=== PATIENT | female | born 1940 | race Caucasian/White ===

== ENCOUNTER 2017-02-25 12:04 | Emergency (ER) | payer OTHER ==
--- NOTE | 2017-02-25 12:55 | CPEKG ---
Heart Rate: 61 RR Interval: 984 P-R Interval: 148 QRSD Interval: 78 QT Interval: 408 QTC Interval: 411 P [place]: 66 QRS [place]: 26 T Wave [place]: 27 EKG Severity - NORMAL ECG - EKG Impression: SINUS RHYTHM Electronically Signed By: Kianna Buenrostro 25-Feb-2017 15:42:25
[2017-02-25 13:22] LABS: % IMMATURE GRANULYOCYTES 0.3 % (0.0-1.1); ABSOLUTE IMMATURE GRANULOCYTES 0.02 10^3/uL (0.00-0.10); ADD DIFF? NO; ADD MORPH? NO; ADD SCAN? NO; ATYPICAL LYMPHOCYTE FLAG 0 (0-99); FRAGMENT RBC FLAG 0 (0-99); HEMATOCRIT 45.5 % (38.0-47.0); HEMOGLOBIN 15.6 g/dL (12.6-16.3); LEFT SHIFT FLG 0 (0-99); LIPEMIA HEMOLYSIS FLAG 90 (0-99); MEAN CELL HEMOGLOBIN 32.4 pg (27.9-34.1); MEAN CELL HEMOGLOBIN CONCENTR. 34.3 g/dL (32.4-36.7); MEAN CELL VOLUME 94.6 fL (81.5-99.8); MEAN PLATELET VOLUME 11.1 fL (8.7-11.7); PLATELET CLUMPS FLAG 0 (0-99); PLATELET COUNT 174 10^3/uL (150-400); RED BLOOD CELL COUNT 4.81 10^6/uL (4.18-5.33); RED CELL DISTRIBUTION WIDTH 12.3 % (11.5-15.2)
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
[2017-02-25 13:45] LABS: ANION GAP 9 mEq/L (8-16); CALCIUM 10.4 mg/dL (8.5-10.4); CARBON DIOXIDE 26 mEq/l (22-31); CHLORIDE 107 mEq/L (97-110); CREATININE 0.6 mg/dL (0.6-1.0); GLOMERULAR FILTRATION RATE > 60; GLUCOSE 89 mg/dL (70-100); POTASSIUM 4.6 mEq/L (3.5-5.2); SODIUM 142 mEq/L (134-144)
[2017-02-25 13:53] LABS: TROPONIN I < 0.012 ng/mL (0-0.034)
[2017-02-25 14:29] VITALS: RESP 16
[2017-02-25 15:44] VITALS: BP 109/73; PULSE 63; TEMP 98.1; O2SAT 90
== END 2017-02-25 15:49 | disposition home or self-care (01) ==
DX: R07.9 Chest pain, unspecified (principal); I10 Essential (primary) hypertension; E11.9 Type 2 diabetes mellitus without complications

== ENCOUNTER 2018-02-03 13:51 | Emergency (ER) | payer OTHER ==
[2018-02-03] MEDS ORDERED: IBUPROFEN 600 MG TAB PO ONE (14:32)
[2018-02-03] MEDS ORDERED: IBUPROFEN 200 MG TAB PO ONE (14:43)
--- NOTE | 2018-02-03 15:00 | EDPHY ---
HPI/HX/ROS/PE/MDM Narrative: CHIEF COMPLAINT: Right hip and back pain HPI: The patient is a 77 y/o with a history of a C4-7 fusion, lumbar spine degenerative discs, osteoarthritis, and hypertension complaining of right back and hip pain onset 2 weeks ago. She believes the pain started after picking up her sewing machine. Denies any fall or injury. She saw Dr. Goff, orthopedic surgeon, (01/26/18 and 02/03/18) and a physical therapist without relief of her symptoms. Dr. Goff preformed 5 x-rays and diagnosed her with right-sided sciatica. Last night she had 3 episodes of urinary incontinence. Denies pain while urinating. Today she saw Dr. Goff's PA today who was concerned about the incontinence and advised the patient to go to the ER. Standing up exacerbates her symptoms. Also, when she stands for an extended period of time she has numbness radiating down her right leg. She has been using Percocet and Flexeril for the pain at night, which mildly relives her pain. No chest pain, shortness of breath, abdominal pain, headache, fever. REVIEW OF SYSTEMS: Aside from elements discussed in the HPI, a comprehensive 10-point review of systems was reviewed and is negative. PMH: Hypertension, cholecystectomy, GERD, C4-7 fusion, lumbar spine disc degeneration, arthritis, anxiety, fibromyalgia SOCIAL HISTORY: Lives in [place], family at bedside, retired PHYSICAL EXAM: General: Patient is alert, in no acute distress. ENT: Eyes are normal to inspection. ENT inspection normal. Neck: Normal inspection. Full range of motion. Respiratory: No respiratory distress. Breath sounds normal bilaterally. Cardiovascular: Regular rate and rhythm. Strong peripheral pulses. Normal cap refill. Abdomen: The abdomen is nontender to palpation. There are no peritoneal signs. There are normal bowel sounds. Back: Tenderness in the right sciatic notch. Normal to inspection. Skin: Normal color. No rash. Warm and dry. Extremities: Normal appearance. Full range of motion. Neuro: Oriented x3. Normal motor function. Normal sensory function. ED Course: 1612: I spoke with Dr. Kennedy, radiologist, regarding the patient's lumbar spine MRI. There is moderate canal stenosis of L1-5. UA still pending. 0: Patient's UA is negative for a UTI. Her symptoms are consistent with right -sided sciatica. 1732: Reassessed patient and discussed laboratory and imaging findings. She is feeling better after Dilaudid, Ativan, and Ibuprofen. I have referred her to Dr. Feldman, neurosurgeon, for an outpatient follow up visit. Return precautions provided; patient is comfortable with this plan. MDM: This patient presents with signs and symptoms of sciatica, with concerning symptom of urinary incontinence. Fortunately, MRI does not demonstrate spinal disease severe enough to be cause of incontinence, and patient feels much better after routine pain medication. I see no sign of UTI or other abdominal process. She is comfortable with the plan to be discharged home and follow-up with a neurosurgeon we have referred her to. I see no signs of AAA, kidney stone, pyelonephritis, sepsis, cauda equina syndrome. - Data Points Imaging Results: Imaging Impressions Lumbar Spine MRI 02/03/18 15:19 Impression: 1. Moderate levoscoliosis, with multilevel moderate degenerative disk disease from L1-L2 through L4-L5 and multilevel moderate bilateral facet arthropathy, resulting in multilevel mild to moderate central canal stenosis, worse at L3-L4 and L4-L5, and variable bilateral neural foraminal stenosis, worse on the left at L4-L5 and on the right at the L2-L3 level. 2. Please see above findings at specific disk levels. Findings and recommendations discussed with Emergency Department physician, Ej Crump M.D., at 1612 hours, on February 03, 2018. Final report concurs with initial preliminary interpretation. Imaging: Discussed imaging studies w/ property adjuster Radiologist, I viewed and interpreted images myself Laboratory Results: Laboratory Results 02/03/18 15:40 02/03/18 15:40 02/03/18 02/03/18 02/03/18 16:35 15:40 15:40 WBC 7.83 10^3/uL 10^3/uL (3.80-9.50) RBC 4.81 10^6/uL 10^6/uL (4.18-5.33) Hgb 15.6 g/dL g/dL (12.6-16.3) Hct 45.3 % % (38.0-47.0) MCV 94.2 fL fL (81.5-99.8) MCH 32.4 pg pg (27.9-34.1) MCHC 34.4 g/dL g/dL (32.4-36.7) RDW 12.9 % % (11.5-15.2) Plt Count 188 10^3/uL 10^3/uL (150-400) MPV 11.1 fL fL (8.7-11.7) Neut % (Auto) 57.7 % % (39.3-74.2) Lymph % (Auto) 34.5 % % (15.0-45.0) [place] % (Auto) 6.5 % % (4.5-13.0) Eos % (Auto) 0.5 % L % (0.6-7.6) Baso % (Auto) 0.4 % % (0.3-1.7) Nucleat RBC Rel Count 0.0 % % (0.0-0.2) Absolute Neuts (auto) 4.52 10^3/uL 10^3/uL (1.70-6.50) Absolute Lymphs (auto) 2.70 10^3/uL 10^3/uL (1.00-3.00) Absolute Monos (auto) 0.51 10^3/uL 10^3/uL (0.30-0.80) Absolute Eos (auto) 0.04 10^3/uL 10^3/uL (0.03-0.40) Absolute Basos (auto) 0.03 10^3/uL 10^3/uL (0.02-0.10) Absolute Nucleated RBC 0.00 10^3/uL 10^3/uL (0-0.01) Immature Gran % 0.4 % % (0.0-1.1) Immature Gran # 0.03 10^3/uL 10^3/uL (0.00-0.10) Sodium 142 mEq/L mEq/L (135-145) Potassium 4.4 mEq/L mEq/L (3.5-5.2) Chloride 103 mEq/L mEq/L (97-110) Carbon Dioxide 28 mEq/l mEq/l (22-31) Anion Gap 11 mEq/L mEq/L (8-16) BUN 18 mg/dL mg/dL (7-23) Creatinine 0.7 mg/dL mg/dL (0.6-1.0) Estimated GFR > 60 Glucose 83 mg/dL mg/dL (70-100) Calcium 10.4 mg/dL mg/dL (8.5-10.4) Urine Color YELLOW Urine Appearance CLEAR Urine pH 7.0 (5.0-7.5) Ur Specific [place] 1.006 (1.002-1.030) Urine Protein NEGATIVE (NEGATIVE) Urine Ketones NEGATIVE (NEGATIVE) Urine Blood NEGATIVE (NEGATIVE) Urine Nitrate NEGATIVE (NEGATIVE) Urine Bilirubin NEGATIVE (NEGATIVE) Urine Urobilinogen NEGATIVE EU EU (0.2-1.0) Ur Leukocyte Esterase NEGATIVE (NEGATIVE) Urine Glucose NEGATIVE (NEGATIVE) Medications Given: Discontinued Medications Hydromorphone HCl (Dilaudid) 0.5 mg IVP EDNOW ONE Stop: 02/03/18 15:18 Last Admin: 02/03/18 15:38 Dose: 0.5 mg Ibuprofen (Motrin) 600 mg PO EDNOW ONE Stop: 02/03/18 14:33 Last Admin: 02/03/18 14:38 Dose: 600 mg Lorazepam (Ativan Injection) 1 mg IVP EDNOW ONE Stop: 02/03/18 15:18 Last Admin: 02/03/18 15:38 Dose: 1 mg General Time Seen by Provider: 02/03/18 14:59 Initial Vital Signs: Initial Vital Signs Temperature (C) 36.7 C 02/03/18 14:02 Heart Rate 62 02/03/18 14:02 Respiratory Rate 16 02/03/18 14:02 Blood Pressure 123/99 H 02/03/18 14:02 O2 Sat (%) 92 02/03/18 14:02 O2 Delivery Mode Room Air Allergies/Adverse Reactions: penicillin V potassium [From Pen-Vee K] Allergy (Severe, Verified 02/25/17 12:10 ) BURN/ PEELING SKIN phenazopyridine HCl [From Pyridium] Allergy (Intermediate, Verified 02/25/17 12: 10) Hives Sulfa (Sulfonamide Antibiotics) Allergy (Intermediate, Verified 02/25/17 12:10) Hives adhesive tape Allergy (Mild, Verified 02/25/17 12:10) SKIN SORES aspirin Allergy (Verified 02/03/18 14:01) sulfamethoxazole [From Septra] Allergy (Verified 02/25/17 12:10) trimethoprim [From Septra] Allergy (Verified 02/25/17 12:10) DYES-CONTRAST Allergy (Severe, Uncoded 02/25/17 12:10) Anaphylaxis LACTOSE INTOL Allergy (Intermediate, Uncoded 02/25/17 12:10) DIARRHEA/SEVERE STOMACH CRAMPS ENVIRONMENTAL Allergy (Mild, Uncoded 04/11/14 10:41) RUNNY NOSE/SNEEZING/COUGHING Home Medications: Medication Instructions Recorded Lipitor 10 mg 06/29/10 Lotrel 10-20 mg 06/29/10 Prilosec Dose Unk 04/02/13 Levothyroxine 10/13/13 Flexeril 10 MG (*) 02/03/18 Vitamin C 02/03/18 Zyrtec 02/03/18 methylPREDNISolone [Medrol Dose 1 each PO AD #1 ea 02/03/18 Y[place]ani] oxyCODONE/APAP 5/325 [Percocet 1 - 2 tab PO Q4H PRN #20 tab 02/03/18 5/325 (*)] Departure - Departure Disposition: Home, Routine, Self-Care Clinical Impression: Sciatica Condition: Good Instructions: Oxycodone/Acetaminophen (By mouth), Sciatica (ED) Additional Instructions: Followup with a card services specialist within one week, you have been referred to Dr. Feldman. Return to the emergency department for severe pain, fever, numbness, difficulty walking, change in location or nature of pain or other concerns. Use ibuprofen and Tylenol as directed. Try using a heating pad. Referrals: Heaven Gooden MD [Primary Care Provider] - As per Instructions Adalberto Feldman MD [Medical Doctor] - As per Instructions Prescriptions: methylPREDNISolone [Medrol Dose [place]] 1 each PO AD #1 ea oxyCODONE/APAP 5/325 [Percocet 5/325 (*)] 1 - 2 tab PO Q4H PRN #20 tab PRN Reason: Pain, Severe Report Scribed for: Ej Crump Report Scribed by: Aziza Muir Date of Report: 02/03/18 Time of Report: 15:00 Physician Review and Approval Statement: Portions of this note were transcribed by an ED scribe. I personally performed the history, physical exam, and medical decision making; and confirm the accuracy of the information in the transcribed note.
[2018-02-03] MEDS ORDERED: LORazepam 2 MG/ML INJ IVP ONE (15:17)
[2018-02-03] MEDS ORDERED: HYDROmorphONE/DILAUDID 2 MG/ML INJ IVP ONE (15:17)
[2018-02-03 15:48] LABS: PLATELET COUNT 188 10^3/uL (150-400)
[2018-02-03 18:02] VITALS: BP 130/80; PULSE 85; RESP 18; TEMP 98.6; O2SAT 94
== END 2018-02-03 18:07 | disposition home or self-care (01) ==
DX: M54.31 Sciatica, right side (principal); I10 Essential (primary) hypertension
CPT/HCPCS: 72148; 96374; 96375; 99285; J1170; J2060

== ENCOUNTER → 2018-04-04 | Outpatient (CLI) | payer OTHER | LOC: FIMAGING 14:03 | PROVIDERS: ATTEND Family Medicine | DX: Z12.31 Encounter for screening mammogram for malignant neoplasm of breast (principal) ==